=== PATIENT | female | born 1995 | race Caucasian/White ===

== ENCOUNTER 2017-02-20 23:47 | Emergency (ER) | payer OTHER ==
[~2017-02-20 23:47] MED LIST: ABILIFY10 MG PO; ABILIFY15 MG PO; INTUNIV3 MG PO; PROZAC20 MG PO; TRAZODONE HCL50 MG PO
[2017-02-21 00:08] LABS: BASOPHIL COUNT 0.1 K/uL (0-0.1); EOSINOPHIL (%) 0.7 % (0-5); EOSINOPHIL COUNT 0.1 K/uL (0-0.3); HEMATOCRIT 39.3 % (36.0-46.0); IMMATURE GRANULOCYTE (%) 0.8 % (0.0-0.7); IMMATURE GRANULOCYTE COUNT 0.1 K/uL; INSTRUMENT ABS NEUTROPHIL CT 13.5 K/uL; LYMPHOCYTE COUNT 2.5 K/uL (1.0-2.8); MCH 28.7 PG (29.0-34.0); MCHC 33.3 G/DL (30.0-36.0); MEAN PLAT.VOLUME 11.4 uM^3 (9.5-12.4); MONOCYTE (%) 5.2 % (3-12); MONOCYTE COUNT 0.9 K/uL (0-0.8); NEUTROPHIL (%) 78.2 % (45-76); NEUTROPHIL COUNT 13.5 K/uL (1.8-6.4); PLATELET COUNT 276 K/uL (156-360); RBC DIS.WIDTH-CV 12.5 % (11.8-14.6); RBC DIS.WIDTH-SD 39.4 % (39-53); RED BLOOD COUNT 4.57 M/uL (3.80-5.20); WHITE BLOOD COUNT 17.3 K/uL (4.1-10.2)
[2017-02-21 01:00] LABS: AMYLASE 32 IU/L (1-118); CHLORIDE 101 mEq/L (99-109); POTASSIUM 3.9 mEq/L (3.7-5.4); SODIUM 134 mEq/L (136-147)
[2017-02-21 01:01] LABS: GLUCOSE 98 mg/dL (70-99)
[2017-02-21] MEDS ORDERED: MOTRIN600 MG PO (01:02)
[2017-02-21 01:03] LABS: ANION GAP 10 MEQ/L (2-14)
[2017-02-21] MEDS ORDERED: ZOFRAN ODT4 MG PO (01:03)
[2017-02-21 01:04] LABS: SERUM ETHYL ALCOHOL < 10 mg/dL
[2017-02-21 01:05] LABS: GFR ESTIMATE (CALCULATED) > 59 mL/min/
[2017-02-21 01:06] LABS: UREA NITROGEN (BUN) 14 mg/dL (9-23)
[2017-02-21 01:08] LABS: LIPASE 12 U/L (1.0-51.0)
[2017-02-21 01:14] LABS: QUANTITATIVE HCG < 4.0 MIU/ML
== END 2017-02-21 02:18 | disposition home or self-care (01) ==
LOC: TRA 23:47
PROVIDERS: Emergency Medicine
DX: S42.022A Displaced fracture of shaft of left clavicle, initial encounter for closed fracture (principal); S06.0X9A Concussion with loss of consciousness of unspecified duration, initial encounter; S90.31XA Contusion of right foot, initial encounter; M25.512 Pain in left shoulder; M25.571 Pain in right ankle and joints of right foot; V58.6XXA Passenger in pick-up truck or van injured in noncollision transport accident in traffic accident, initial encounter
CPT/HCPCS: 70450; 71010; 71260; 72125; 73030; 73610; 73630; 74177; 80048; 81003; 82150; 83690; 84702; 85025; 86900; 86901; 99281; 99285; G0480; J2270; J2405